=== PATIENT | female | born 2000 | race Hispanic/Latino ===

== ENCOUNTER 2023-02-13 02:17 | Emergency (ER) | payer MEDICAID ==
[~2023-02-13] VITALS: Ht 154.9 cm; Wt 121.1 kg
[2023-02-13 02:19] VITALS: BP 144/78; PULSE 89; RESP 18
== END 2023-02-13 03:03 | disposition home or self-care (01) ==
LOC: EDH 02:17
DX: R21 Rash and other nonspecific skin eruption (principal); Z90.49 Acquired absence of other specified parts of digestive tract
CPT/HCPCS: 99281